=== PATIENT | male | born 1960 | race Caucasian/White ===

== ENCOUNTER → 2017-04-07 | Outpatient (CLI) | payer OTHER ==
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
== END ==
LOC: RAD 07:43
PROVIDERS: ATTEND Obstetrics & Gynecology
DX: R10.13 Epigastric pain (principal)
CPT/HCPCS: 78227; J2805; A9537; Q9969

== ENCOUNTER 2017-10-28 10:38 | Day surgery (SDC) | payer MEDICARE, OTHER ==
[2017-10-28] MEDS ORDERED: PROPOFOL INJ 200 MG/20 ML VIAL IV ONE (11:58)
[2017-10-28] MEDS ORDERED: PROMETHAZINE HCL INJ 25 MG/1 ML VIAL IV PRN (13:28)
[2017-10-28] MEDS ORDERED: FENTANYL CITRATE INJ/PF 100 MCG/2 ML AMPUL IV PRN ×3 (13:28)
--- NOTE | 2017-10-28 14:29 | Operative Report ---
Operative Report DATE OF SURGERY: 10/28/17 Operative Report: The risks, benefits and alternatives are explained to the patient in detail informed consent is obtained patient taken to OR Time out is called Propofol sedation is given the Olympus videoscope is advanced to the cecum it is identified by the usual anatomical landmarks photodocumentation is obtained the scope is slowly withdrawn tubular and concentric views of the colon are obtained retroflexion is performed PREOPERATIVE DIAGNOSIS: colorectal cancer screening POSTOPERATIVE DIAGNOSIS: 5 rectal polyps removed via snare polypectomy. diverticulosis. internal hemorrhoids OPERATION: colonoscopy with snare polypectomy SURGEON: PIEDAD THOMASON ANESTHESIA: LMAC TISSUE REMOVED OR ALTERED: as noted COMPLICATIONS: none ESTIMATED BLOOD LOSS: none INTRAOPERATIVE FINDINGS: as noted above PROCEDURE: patient tolerated the procedure well no post procedure complications he is discharged in good condition discharge date: 10/28/17 discharge activity: regular discharge diet : regular follow up in 2-3 weeks patient is advised to go to ED or call the office if any problems 1 year surveillance colonoscopy
[2017-10-28 15:16] VITALS: BP 131/80
== END 2017-10-28 15:05 | disposition home or self-care (01) ==
LOC: OROUT 10:38
PROVIDERS: ATTEND Internal Medicine Gastroenterology
DX: Z12.11 Encounter for screening for malignant neoplasm of colon (principal); D12.8 Benign neoplasm of rectum; K57.30 Diverticulosis of large intestine without perforation or abscess without bleeding; K64.8 Other hemorrhoids; E78.5 Hyperlipidemia, unspecified; I10 Essential (primary) hypertension; K21.9 Gastro-esophageal reflux disease without esophagitis; Z79.82 Long term (current) use of aspirin; Z79.899 Other long term (current) drug therapy; Z79.02 Long term (current) use of antithrombotics/antiplatelets; Z87.891 Personal history of nicotine dependence
CPT/HCPCS: 88305 ×2; G0121; J2704; 811

== ENCOUNTER 2019-03-04 12:44 | Emergency (ER) | payer OTHER, MEDICARE ==
[2019-03-04] MEDS ORDERED: DIPH/PERTUSS(ACELL)/TETANUS VAC/PF 0.5 ML SYR (>=10YO) IM ONE (13:13)
[2019-03-04] MEDS ORDERED: MORPHINE SULFATE 10 MG/ML INJ IV ONE (13:14)
[2019-03-04] MEDS ORDERED: ONDANSETRON HCL INJ/PF 4 MG/2 ML SDV IV ONE (13:14)
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
[2019-03-04 16:41] VITALS: BP 120/79
== END 2019-03-04 16:54 | disposition home or self-care (01) ==
LOC: ER 12:44
DX: S32.029A Unspecified fracture of second lumbar vertebra, initial encounter for closed fracture (principal); S50.311A Abrasion of right elbow, initial encounter; M25.521 Pain in right elbow; R07.89 Other chest pain; V29.40XA Motorcycle driver injured in collision with unspecified motor vehicles in traffic accident, initial encounter; Z79.02 Long term (current) use of antithrombotics/antiplatelets; F17.210 Nicotine dependence, cigarettes, uncomplicated; I25.10 Atherosclerotic heart disease of native coronary artery without angina pectoris; I25.2 Old myocardial infarction; I10 Essential (primary) hypertension
CPT/HCPCS: 99284; 90471; 96374; 96375; 73070; 70450; 71260; 72125; 74177; 90715; L0120; J2270; J2405

== ENCOUNTER 2019-05-22 07:26 | Day surgery (SDC) | payer MEDICARE, OTHER ==
[2019-05-22] MEDS ORDERED: PROPOFOL INJ 200 MG/20 ML VIAL IV ONE (07:38)
[2019-05-22 09:26] VITALS: BP 116/66
--- NOTE | 2019-05-22 12:57 | Operative Report ---
Operative Report DATE OF SURGERY: 05/22/19 Operative Report: The risk, benefits and alternatives of the procedure including the risk of bleeding, perforation requiring surgery have been explained to the patient in detail and informed consent has been obtained. Patient is placed in a left, lateral decubital position. Timeout was called. Propofol medication is administered. Rectal examination is done which did not reveal any masses, tears or fissures. An Olympus videoscope was introduced into the patient's rectum. Scope was then carefully advanced all the way to the cecum. Cecum was identified by the usual anatomical landmarks including the ileocecal valve as well as the appendiceal office. Photodocumentation was obtained. Scope was then sequentially pulled back via the various segments of the colon including the ascending colon, back flexure, transverse colon, splenic flexure, descending colon and finally into the rectosigmoid portions of the colon. Retroflexion maneuvers performed. PREOPERATIVE DIAGNOSIS: Personal history of polyps POSTOPERATIVE DIAGNOSIS: 2 colon polyps removed via snare polypectomy and retrieved. Diverticulosis. Internal hemorrhoids. Right colon inflammation status post biopsy. No evidence of diverticulitis OPERATION: Colonoscopy with snare polypectomy. Colonoscopy with biopsy SURGEON: PIEDAD THOMASON ANESTHESIA: LMAC TISSUE REMOVED OR ALTERED: As noted above. COMPLICATIONS: None. ESTIMATED BLOOD LOSS: None. INTRAOPERATIVE FINDINGS: As noted above. PROCEDURE: Patient tolerated the procedure well. No immediate postprocedure complications are noted. Patient is discharged in good condition. Discharge date 05/22/2019. Discharge diet: Regular. Discharge activity: Regular. 2 to 3-week follow-up to discuss findings. Patient is instructed call the office or proceed to the emergency room should there be any further problems or questions. 3 to 5-year surveillance colonoscopy.
== END 2019-05-22 09:24 | disposition home or self-care (01) ==
LOC: END 07:26
PROVIDERS: ATTEND Internal Medicine Gastroenterology
DX: Z12.11 Encounter for screening for malignant neoplasm of colon (principal); D12.5 Benign neoplasm of sigmoid colon; K64.8 Other hemorrhoids; K52.9 Noninfective gastroenteritis and colitis, unspecified; Z86.010 Personal history of colon polyps; E78.5 Hyperlipidemia, unspecified; I10 Essential (primary) hypertension; Z87.891 Personal history of nicotine dependence; Z79.82 Long term (current) use of aspirin; Z79.02 Long term (current) use of antithrombotics/antiplatelets; Z79.899 Other long term (current) drug therapy; Z79.51 Long term (current) use of inhaled steroids; I25.2 Old myocardial infarction; G47.33 Obstructive sleep apnea (adult) (pediatric)
CPT/HCPCS: 45380; 45385; 88305 ×2; 00811; J2704; 811